=== PATIENT | female | born 1980 | race Caucasian/White ===

== ENCOUNTER 2023-09-21 13:30 | Outpatient (REF) | payer MEDICAID, SELFPAY ==
--- NOTE | ~2023-09-21 | XR_ITS ---
EXAMINATION: XR CERVICAL SPINE CLINICAL INFORMATION: Pain. COMPARISON: None available. TECHNIQUE: 4 upright views of the cervical spine inclusive of AP, lateral, flexion and extension views. FINDINGS: Degenerative changes and very limited images of the upper thoracic spine. Mild retrolisthesis of C4 on C5 with extension. Mild retrolisthesis of C5 on C6 with flexion. Multilevel cervical spondylosis with loss of disc space height most notable at C5-C6. XR/XR cervical spine 4V IMPRESSION: Multilevel cervical spondylosis most notable at C5-C6.
== END 2023-09-21 13:31 | disposition home or self-care (01) ==
LOC: HO.HOSX 13:30
PROVIDERS: PCP Internal Medicine; Visit Provider Physician Assistant
DX: M54.12 Radiculopathy, cervical region (principal)
CPT/HCPCS: 72050; 99212

== ENCOUNTER 2023-09-21 13:30 | Outpatient (AMB) | payer MEDICAID, SELFPAY ==
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
== END 2023-09-21 14:51 | disposition home or self-care (01) ==
PROVIDERS: PCP Internal Medicine; Referring Provider Physician Assistant Medical; Visit Provider Physician Assistant
DX: M54.12 Radiculopathy, cervical region (principal)
CPT/HCPCS: 99204

== ENCOUNTER 2023-11-22 | Outpatient (REF) | payer MEDICAID, SELFPAY ==
[2023-11-22 12:27] VITALS: BP 117/84; PULSE 89; RESP 18; O2SAT 100; BMI 20.1
--- NOTE | 2023-11-22 13:00 | ECG_ITS ---
Test Reason : preop Blood Pressure : / mmHG Vent. Rate : 068 BPM Atrial Rate : 068 BPM P-R Int : 088 ms QRS Dur : 074 ms QT Int : 394 ms P-R-T Axes : 063 067 049 degrees QTc Int : 418 ms Sinus rhythm with short CA Otherwise normal ECG No previous ECGs available Referred By: Larisa Junior Electronically Signed By:ESMER CONSTANTINO
[2023-11-22 13:55] LABS: Hematocrit 39.9 % (37.0-47.0); Hemoglobin 13.3 g/dl (12.0-16.0); Mean Corpuscular HGB Conc 33.3 g/dl (31.0-35.0); Mean Corpuscular Hemoglobin 30.9 pg (27.0-33.0); Mean Corpuscular Volume 92.6 fL (80.0-98.0); Mean Platelet Volume 9.7 fL (9.4-12.3); Platelet Count 237 X10*3/uL (160-400); Red Blood Count 4.31 X10*6/uL (4.20-5.50); Red Cell Distribution Width 12.2 % (11.0-16.0); White Blood Count 6.8 X10*3/uL (4.8-10.8)
[2023-11-22 13:56] LABS: Anion Gap 8 (12-20); Blood Urea Nitrogen 7 mg/dL (9-16); Calcium 9.3 mg/dL (8.4-10.2); Carbon Dioxide 31 mmol/L (22-29); Chloride 105 mmol/L (96-108); Creatinine Clr Calc Pharmacy 60.9; Estimated Glomerular Filt Rate > 60; Glucose Random 94 mg/dL (60-115); Potassium 3.8 mmol/L (3.3-5.1); Sodium 140 mmol/L (135-145)
--- NOTE | 2023-12-05 09:13 | P.CONAN_ITS ---
HPI - Anesthesia Eval Consult details Narrative: 43yo F for C5-6 Ant Cerv Discectomy w/ fusion Suboxone daily - advised 4mg TID preop PMFSH Active Problems Active Problems: All Active Problems (Updated 11/22/23 @ 12:37 by Randi Wilson RN) Cervical radiculopathy (Acute) Past Medical History Medical History (Updated 11/22/23 @ 12:37 by Randi Wilson RN) Anesthesia complication Alcohol withdrawal Alcohol dependence Opiate dependence Autism spectrum disorder Diverticulosis Osteoarthritis Anxiety Depression PTSD (post-traumatic stress disorder) Asthma Cervical radiculopathy Surgical History Surgical History (Updated 11/22/23 @ 13:05 by Randi Wilson RN) History of esophagogastroduodenoscopy (EGD) H/O colonoscopy Hx of oral surgery Hx of dilation and curettage Hx of cholecystectomy History of open reduction and internal fixation (ORIF) procedure Social History Social History Housing Other:: homeless nursing home Are you a primary inpatient care manager rn to a significant other at home: No Do you presently have visiting nurse or other home services: No Patient Tobacco Use Status: Current everyday Tobacco user Tobacco use type: Cigarette Cigarettes Per Day: 15 Years Smoked: 25 Patient Interested in Nicotine Replacement: Yes Use of substances other than those prescribed or required for medical reasons: Yes Substance Use Type Other:: former opiate use-taking buprenorphine daily Have you been hit, kicked, punched, or otherwise hurt by someone within the past year? If so, by whom?: No Are you DNR?: No Advance Directives: No Advance Directives Information Provided: No Advance Directives on File: No Recently lost weight without trying: No Eating poorly because of decreased appetite: No Nutrition Risks: No Nutritional Risk Patient : No FDLMP: N/A : No Poor oral hygiene: No (edentulous) Meds Allergies Allergy/AdvReac Type Severity Reaction Status Date / Time diphenhydramine Allergy Severe panics/anxi Verified 11/22/23 12:20 [From Benadryl] ety fluoxetine [From Prozac] Allergy Severe Hallucinati Verified 11/22/23 12:19 ons/anxiety /nausea adhesive tape Allergy Intermediate skin Verified 11/22/23 12:20 tears/hives hydrocodone [From Vicodin] Allergy Intermediate Hives Verified 11/21/23 09:47 ketorolac [From Toradol] Allergy Intermediate Hives Verified 11/21/23 09:47 morphine [MORPHINE] Allergy Intermediate HIVES Unverified 11/22/23 12:18 olanzapine [From Zyprexa] Allergy Intermediate anger/viole Verified 11/22/23 12:19 nce tramadol [TRAMADOL] Allergy Intermediate HIVES Unverified 11/21/23 09:47 Home Medications ?Medication ?Instructions ?Recorded ?Confirmed ?Last Taken ?Type albuterol sulfate 90 mcg/actuation 2 puff inhalation Q6H 11/21/23 11/21/23 Unknown History aerosol inhaler (Ventolin HFA) buprenorphine HCl 8 mg sublingual 8 mg sublingual BID 11/21/23 11/22/23 Unknown History tablet cetirizine 10 mg tablet (Allergy 10 mg PO DAILY 11/21/23 11/21/23 Unknown History Relief (cetirizine)) docusate sodium 100 mg capsule 100 mg PO BID PRN Constipation 11/21/23 11/21/23 Unknown History fluticasone propionate 50 2 spray intranasal BID 11/21/23 11/21/23 Unknown History mcg/actuation nasal spray,suspension lidocaine 5 % topical patch 1 patch topical DAILY 11/21/23 11/21/23 Unknown History melatonin 1 mg tablet 1 mg PO BEDTIME 11/21/23 11/21/23 Unknown History methocarbamol 500 mg tablet 500 mg PO BID 11/21/23 11/21/23 Unknown History ondansetron 4 mg disintegrating 4 mg PO BID PRN nausea 11/21/23 11/21/23 Unknown History tablet sennosides 8.6 mg tablet (senna) 17.2 mg PO BEDTIME PRN constipation 11/21/23 11/21/23 Unknown History tiotropium bromide 1.25 2 puff inhalation QAM 11/21/23 11/22/23 Unknown History mcg/actuation mist for inhalation (Spiriva Respimat) dextroamphetamine-amphetamine 15 1 tab PO BID 11/22/23 11/22/23 Unknown History mg tablet dextroamphetamine-amphetamine 5 mg 1 tab PO QPM 11/22/23 11/22/23 Unknown History tablet gabapentin 800 mg tablet 800 mg PO TID 11/22/23 11/22/23 Unknown History Exam Height,Weight and Vital Signs: Height 4 ft 10.5 in Weight 44.452 kg Last Vital Signs Pulse 89 11/22/23 12:27 Resp 18 11/22/23 12:27 BP 117/84 11/22/23 12:27 Pulse Ox 100 11/22/23 12:27 O2 Del Method Room Air 11/22/23 12:27 Pertinent Lab Results Pertinent Lab Results: Laboratory Tests 11/22/23 13:24 WBC 6.8 RBC 4.31 Hgb 13.3 Hct 39.9 MCV 92.6 MCH 30.9 MCHC 33.3 RDW 12.2 Plt Count 237 MPV 9.7 Absolute Nucleated RBC 0.000 Nucleated RBC % (auto) 0.0 Sodium 140 Potassium 3.8 Chloride 105 Carbon Dioxide 31 H Anion Gap 8 L BUN 7 L Creatinine 0.76 Estim Creat Clear Calc 60.9 Estimated GFR > 60 Random Glucose 94 Calcium 9.3 Narrative Narrative: EKG 12/2023 Vent. Rate : 068 BPM Atrial Rate : 068 BPM P-R Int : 088 ms QRS Dur : 074 ms QT Int : 394 ms P-R-T Axes : 063 067 049 degrees QTc Int : 418 ms Sinus rhythm with short GA Otherwise normal ECG No previous ECGs available Assessment and Plan Assessment Anesthesia Assessment: Chart Reviewed
== END 2023-11-22 00:01 | disposition home or self-care (01) ==
LOC: HO.PAT
PROVIDERS: Anesthesiology; PCP Nurse Practitioner; Visit Provider Neurological Surgery
DX: Z01.818 Encounter for other preprocedural examination (principal); M54.12 Radiculopathy, cervical region
CPT/HCPCS: 36415; 80048; 85027; 93005

== ENCOUNTER → 2023-11-22 13:00 | Outpatient (BNV) | payer MEDICAID, SELFPAY | PROVIDERS: PCP Nurse Practitioner; Visit Provider Internal Medicine | DX: I49.8 Other specified cardiac arrhythmias (principal); Z01.810 Encounter for preprocedural cardiovascular examination | CPT/HCPCS: 93010 ==